=== PATIENT | male | born 1955 | race Caucasian/White ===

== ENCOUNTER 2018-05-04 19:44 | Emergency (ER) | payer MEDICAID, OTHER ==
[2018-05-04] MEDS ORDERED: Sodium Chloride 0.9% 500 ML IV STA (20:23)
[2018-05-04 20:54] LABS: BASO % 0.6 % (0.0-2.0); EOS # 0.1 K/uL (0.0-0.7); EOS % 1.6 % (0.0-4.0); HEMOGLOBIN 13.7 g/dL (12.0-18.0); LYMPH # 1.1 K/uL (1.0-4.3); LYMPH % 16.2 % (20.0-40.0); MEAN CELL VOLUME 91.8 fl (80.0-94.0); MEAN CORPUSCULAR HEMOGLOBIN 30.3 pg (27.0-31.0); MONO # 0.8 K/uL (0.0-0.8); MONO % 11.5 % (0.0-10.0); NEUT # 4.9 K/uL (1.8-7.0); NEUT % 70.1 % (50.0-75.0); NRBC % 0.1 % (0.0-0.0); RBC 4.52 Mil/uL (4.40-5.90); RED CELL DISTRIBUTION WIDTH 14.2 % (11.5-14.5)
[2018-05-04 21:02] LABS: ALB/GLOB RATIO 1.4 (1.0-2.1); ALBUMIN 4.2 g/dL (3.5-5.0); ALT/SGPT 62 U/L (21-72); AST/SGOT 121 U/L (17-59); BLOOD UREA NITROGEN 37 mg/dl (9-20); GFR NON-AFRICAN AMERICAN > 60
--- NOTE | 2018-05-04 21:44 | ED PDOC ---
HPI: Psych/Substance Abuse Time Seen by Provider: 05/04/18 20:05 Chief Complaint (Nursing): Substance Abuse Chief Complaint (Provider): Substance Abuse History Per: Patient, EMS History/Exam Limitations: no limitations Onset/Duration Of Symptoms: Hrs Current Symptoms Are (Timing): Still Present Suicide/Self Injury Attempted (Context): None Modifying Factor(s): Other (Heroin Abuse) Additional Complaint(s): 63 y/o male with a PMHx of HTN, two MIs and CAD brought to the ED after being found poorly responsive outdoors, onset prior to arrival. A dose of narcan was provided by the PD followed by an additional dose provided by EMS. After second dose of narcan, patient became more responsive, complaining of nausea and chest pain. Patient admits to heroin use. Of note, patient just got out of detention where his medical conditions were controlled. Patient states he has not taken any medication for conditions for the past three days. Denies EtOH use. PMD: no provider Past Medical History Reviewed: Historical Data, Nursing Documentation, Vital Signs Vital Signs: Last Vital Signs Temp 96.5 F L 05/04/18 19:46 Pulse 133 H 05/04/18 20:54 Resp 16 05/04/18 20:54 BP 129/71 05/04/18 20:54 Pulse Ox 95 05/04/18 20:54 - Medical History PMH: Atrial Fibrillation, CAD, HTN Other PMH: Two TN - Surgical History Surgical History: No Surg Hx - Family History Family History: States: No Known Family Hx - Social History Current smoker - smoking cessation education provided: Yes Alcohol: None Drugs: Other - Home Medications Home Medications: Ambulatory Orders Medication Instructions Recorded RX: Unobtainable 05/04/18 - Allergies Allergies/Adverse Reactions: Allergies Allergy/AdvReac Type Severity Reaction Status Date / Time No Known Allergies Allergy Verified 05/04/18 19:46 Review of Systems ROS Statement: Except As Marked, All Systems Reviewed And Found Negative Cardiovascular: Positive for: Chest Pain Gastrointestinal: Positive for: Nausea Psych: Positive for: Other (Substance Abuse) Physical Exam - Reviewed Nursing Documentation Reviewed: Yes Vital Signs Reviewed: Yes - Physical Exam Appears: Positive for: In Acute Distress (Unkempt and Disheveled as well as Mild GI Distress (retching)) Head Exam: Positive for: ATRAUMATIC, NORMOCEPHALIC Skin: Positive for: Warm, Dry Eye Exam: Positive for: EOMI, PERRL ENT: Positive for: Normal ENT Inspection Neck: Positive for: Painless ROM, Supple Cardiovascular/Chest: Positive for: Tachycardia. Negative for: Edema, Murmur Respiratory: Positive for: Normal Breath Sounds. Negative for: Respiratory Distress Gastrointestinal/Abdominal: Positive for: Soft. Negative for: Tenderness Back: Positive for: Normal Inspection. Negative for: Muscle Spasm Extremity: Positive for: Normal ROM. Negative for: Deformity Lymphatic: Negative for: Adenopathy Neurologic/Psych: Positive for: Alert. Negative for: Motor/Sensory Deficits - Laboratory Results Result Diagrams: 05/05/18 04:11 05/05/18 04:11 - ECG O2 Sat by Pulse Oximetry: 95 (RA) Pulse Ox Interpretation: Normal - Progress Re-evaluation Time: 23:00 Condition: Improving,but remains with symptoms - Critical Care Total Time (In Min): 30 Documented Critical Care: Time excludes all time spent performint seperately billable procedures Medical Decision Making Medical Decision Making: Time: 20:22 Impression: Opioid OD in setting of cardiac risk factors Plan: - EKG - Alcohol Serum - CMP - Urine Drug Screen - Troponin I - Urine dipstick - CBC - CXR (portable) - Cardizem 125 mg IV 5 mg/hr - Cardizem 10 mg IVP - Sodium Chloride 0.9% 500 ml IV 500 mls/hr - Zofran 4 mg IVP - 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 Cardizem load/drip ordered. EtOH is 15 mg/dl Pt to be admitted for serial enzymes to rule out ACS 22:00 labs are unremarkable discussed with Dr. Mckeon HR normalizing. Pt to be admitted under his service for rapid A Fib and chest pain. Scribe Attestation: Documented by Mimi Victor, acting as a scribe for Provider Scribe Attestation: All medical record entries made by the Scribe were at my direction and personally dictated by me. I have reviewed the chart and agree that the record accurately reflects my personal performance of the history, physical exam, medical decision making, and the department course for this patient. I have also personally directed, reviewed, and agree with the discharge instructions and disposition. Disposition - Clinical Impression Clinical Impression: Atrial fibrillation with RVR, Substance use disorder, CAD (coronary artery disease) - Patient ED Disposition Is Patient to be Admitted: Yes Discussed With DrHarmony: Clovis Treadwell Doctor Will See Patient In The: Hospital Counseled Patient/Family Regarding: Studies Performed, Diagnosis - Disposition Disposition Time: 22:00 Condition: FAIR - Pt Status Changed To: Hospital Disposition Of: Inpatient - Admit Certification Admit to Inpatient:: After my assessment, the patient will require hospitalization for at least two midnights. This is because of the severity of symptoms shown, intensity of services needed, and/or the medical risk in this patient being treated as an outpatient. - POA Present On Arrival: None
[2018-05-05 04:27] LABS: BASO # 0.1 K/uL (0.0-0.2); BASO % 0.6 % (0.0-2.0); EOS # 0.1 K/uL (0.0-0.7); EOS % 0.5 % (0.0-4.0); HEMOGLOBIN 13.3 g/dL (12.0-18.0); LYMPH # 1.4 K/uL (1.0-4.3); LYMPH % 12.5 % (20.0-40.0); MEAN CELL VOLUME 94.4 fl (80.0-94.0); MEAN CORPUSCULAR HEMOGLOBIN 30.6 pg (27.0-31.0); MEAN CORPUSCULAR HGB CONC 32.4 g/dL (33.0-37.0); MONO # 1.1 K/uL (0.0-0.8); NEUT # 8.4 K/uL (1.8-7.0); NEUT % 76.4 % (50.0-75.0); NRBC % 0.2 % (0.0-0.0); RBC 4.36 Mil/uL (4.40-5.90)
[2018-05-05 04:30] LABS: ALB/GLOB RATIO 1.3 (1.0-2.1); ALBUMIN 3.8 g/dL (3.5-5.0); ALT/SGPT 57 U/L (21-72); AST/SGOT 101 U/L (17-59); BLOOD UREA NITROGEN 34 mg/dl (9-20); CALCIUM 8.6 mg/dL (8.4-10.2); GFR NON-AFRICAN AMERICAN > 60
[2018-05-05 04:51] LABS: BARBITURATES, UR NEGATIVE (NEGATIVE); BENZODIAZEPINES, UR NEGATIVE (NEGATIVE); OPIATES, UR POSITIVE (NEGATIVE); PHENCYCLIDINE, UR NEGATIVE (NEGATIVE)
[2018-05-05 08:22] VITALS: RESP 19
[2018-05-05] MEDS ORDERED: Enoxaparin 60 mg Syringe SC SCH ×2 (09:00)
--- NOTE | 2018-05-05 09:16 | RAD ---
Date of service: 05/04/2018 HISTORY: chest pain COMPARISON: No prior. FINDINGS: LUNGS: The left infra hilar bronchovascular markings appear slightly increase here peribronchial thickening-inflammatory changes-chronicity unknown with possible concomitant bronchiectasis is a consideration. Some increased soft tissue density in the right infrahilar location also suggested extreme variant versus concomitant right infrahilar peribronchial thickening here as well a consideration. Study is rotated and or mild scoliosis also suggested. PLEURA: No significant pleural effusion identified, no pneumothorax apparent. CARDIOVASCULAR: There is presence of aortic atherosclerotic calcification on x-ray. Probable top-normal. No significant appearing pulmonary venous congestion. OSSEOUS STRUCTURES: The convexity thoracic spine. Right shoulder arthrosis. VISUALIZED UPPER ABDOMEN: Normal. OTHER FINDINGS: None IMPRESSION: Bibasilar infrahilar peribronchial thickening compatible with inflammation/bronchitis. Concomitant bronchiectasis here possible. Comparison with any outside studies recommended. Chronicity unknown Other findings as above.
--- NOTE | 2018-05-05 11:17 | CP.PCM.HP ---
History of Present Illness - History of Present Illness History of Present Illness: CC: Poorly Responsive HPI: Hsitory from the Medical record A63 y/o male with a PMHx of HTN, two MIs and CAD brought to the ED after being found poorly responsive outdoors, onset prior to arrival. A dose of narcan was provided by the PD followed by an additional dose provided by EMS. After second dose of narcan, patient became more responsive, complaining of nausea and chest pain. Patient admits to heroin use. Of note, patient just got out of custodial where his medical conditions were controlled. Patient states he has not taken any me dication for conditions for the past three days. Denies EtOH use. Patient was in A. FIB/A flutter with RVR Persistently >140 BMP. I have treated him overnight with Cardizem Infusion first 5mg/hr, and then 10 mg/hr. HR was brought to <100 BPM, and was switched to PO Cardizem. Present on Admission - Present on Admission Any Indicators Present on Admission: No Review of Systems - Review of Systems All systems: reviewed and no additional remarkable complaints except Past Patient History - Past Social History Alcohol: None Drugs: Opiates, Other - CARDIAC Hx Atrial Fibrillation: Yes Hx Hypertension: Yes - PSYCHIATRIC Hx Substance Use: Yes (heroin) - SURGICAL HISTORY Hx Surgeries: No Meds Allergies/Adverse Reactions: Allergies Allergy/AdvReac Type Severity Reaction Status Date / Time No Known Allergies Allergy Verified 05/04/18 19:46 Results - Vital Signs Recent Vital Signs: Last Vital Signs Temp 97.7 F 05/05/18 08:21 Pulse 78 05/05/18 09:59 Resp 19 05/05/18 09:59 BP 120/78 05/05/18 09:59 Pulse Ox 98 05/05/18 09:59 - Labs Result Diagrams: 05/05/18 04:11 05/05/18 04:11 Labs: Laboratory Results - last 24 hr 05/04/18 05/04/18 05/04/18 20:40 20:48 20:48 WBC 7.0 RBC 4.52 Hgb 13.7 Hct 41.5 MCV 91.8 MCH 30.3 MCHC 33.0 RDW 14.2 Plt Count 189 MPV 9.0 Neut % (Auto) 70.1 Lymph % (Auto) 16.2 L Adams % (Auto) 11.5 H Eos % (Auto) 1.6 Baso % (Auto) 0.6 Neut # (Auto) 4.9 Lymph # (Auto) 1.1 Adams # (Auto) 0.8 Eos # (Auto) 0.1 Baso # (Auto) 0.0 Sodium 140 Potassium 4.5 Chloride 100 Carbon Dioxide 27 Anion Gap 18 BUN 37 H Creatinine 1.1 Est GFR ( Amer) > 60 Est GFR (Non-Af Amer) > 60 Random Glucose 132 H Calcium 9.0 Total Bilirubin 0.8 AST 121 H ALT 62 Alkaline Phosphatase 85 Troponin I < 0.0120 Total Protein 7.2 Albumin 4.2 Globulin 3.0 Albumin/Globulin Ratio 1.4 TSH 3rd Generation 1.43 Urine Opiates Screen Urine Methadone Screen Ur Barbiturates Screen Ur Phencyclidine Scrn Ur Amphetamines Screen U Benzodiazepines Scrn U Oth Cocaine Metabols U Cannabinoids Screen Alcohol, Quantitative 15 H 05/05/18 05/05/18 05/05/18 04:11 04:11 04:24 WBC 11.0 H D RBC 4.36 L Hgb 13.3 Hct 41.1 MCV 94.4 H D MCH 30.6 MCHC 32.4 L RDW 14.0 Plt Count 213 MPV 9.0 Neut % (Auto) 76.4 H Lymph % (Auto) 12.5 L Adams % (Auto) 10.0 Eos % (Auto) 0.5 Baso % (Auto) 0.6 Neut # (Auto) 8.4 H Lymph # (Auto) 1.4 Adams # (Auto) 1.1 H Eos # (Auto) 0.1 Baso # (Auto) 0.1 Sodium 137 Potassium 5.3 H Chloride 100 Carbon Dioxide 28 Anion Gap 14 BUN 34 H Creatinine 1.0 Est GFR ( Amer) > 60 Est GFR (Non-Af Amer) > 60 Random Glucose 129 H Calcium 8.6 Total Bilirubin 0.8 AST 101 H ALT 57 Alkaline Phosphatase 76 Troponin I 0.0170 Total Protein 6.8 Albumin 3.8 Globulin 3.0 Albumin/Globulin Ratio 1.3 TSH 3rd Generation Urine Opiates Screen Positive H Urine Methadone Screen Negative Ur Barbiturates Screen Negative Ur Phencyclidine Scrn Negative Ur Amphetamines Screen Negative U Benzodiazepines Scrn Negative U Oth Cocaine Metabols Positive H U Cannabinoids Screen Positive H Alcohol, Quantitative - EKG Data EKG comments: A fib with RVR 130. Assessment & Plan (1) Atrial fibrillation with RVR Status: Acute Priority: High (2) CAD (coronary artery disease) Status: Acute Priority: High (3) Polysubstance (excluding opioids) dependence Assessment and Plan: Poor Responsiveness Narcan use in the field Status: Acute Priority: High - Assessment and Plan (Free Text) Plan: Cardizem Therapeutic anticoagulation
[2018-05-05 11:40] VITALS: BP 130/78; PULSE 89; TEMP 97.6
--- NOTE | 2018-05-06 00:06 | CARD ---
APPROVED REPORT Date of service: 05/04/2018 EKG Measurement Heart [id number] <Conclusion> Atrial fibrillation with rapid ventricular response Low voltage QRS Right bundle branch block Abnormal ECG
--- NOTE | 2018-05-06 00:44 | CARD ---
APPROVED REPORT Date of service: 05/05/2018 EXAM: Two-dimensional and M-mode echocardiogram with Doppler and color Doppler. Other Information Quality : GoodRhythm : NSR INDICATION Atrial Fibrillation 2D DIMENSIONS IVSd1.11 (0.7-1.1cm)LVDd4.31 (3.9-5.9cm) LVOT Diameter1.72 (1.8-2.4cm)PWd1.01 (0.7-1.1cm) IVSs1.40 (0.8-1.2cm)LVDs2.32 (2.5-4.0cm) FS (%) 46.2 %PWs1.57 (0.8-1.2cm) M-Mode DIMENSIONS Left Atrium (MM)4.14 (2.5-4.0cm)IVSd1.08 (0.7-1.1cm) Aortic Root2.65 (2.2-3.7cm)LVDd4.12 (4.0-5.6cm) Aortic Cusp Exc.1.70 (1.5-2.0cm)PWd1.03 (0.7-1.1cm) IVSs1.75 cmFS (%) 51 % LVDs2.01 (2.0-3.8cm)PWs1.88 cm Aortic Valve AoV Peak Nfizntow107.9cm/sAoV VTI26.6cmAO Peak GR.10mmHg LVOT Peak Yfxbykrx69.7cm/sLVOT VTI14.44cmAO Mean GR.6mmHg TAZ (VMAX)0.46rm2RTY (VTI)0.73cm2 Mitral Valve MV E Ynavtkka95.4cm/sMV DECEL AKUF145axXP A Eamabpag00.0cm/s MV USP45ndK/A ratio1.1MVA (PHT)5.09cm2 TDI Lateral E' Peak V12.22cm/sMedial E' Peak V9.13cm/sE/Lateral E'4.9 E/Medial E'6.5 Tricuspid Valve TR Peak Vtuauvbv094hq/sRAP XCKSCTTN68dzZoLW Peak Gr.26mmHg GRLR45pnPm LEFT VENTRICLE The left ventricle is normal size. There is normal left ventricular wall thickness. The left ventricular systolic function is normal. The estimated ejection fraction is 60-65% No regional wall motion abnormalities noted.. Transmitral Doppler flow pattern is Grade II-pseudonormal filling dynamics. No left ventricle thrombus noted on this study. There is no ventricular septal defect visualized. There is no left ventricular aneurysm. There is no mass noted in the left ventricle. RIGHT VENTRICLE The right ventricle is normal size. There is normal right ventricular wall thickness. The right ventricular systolic function is normal. ATRIA The left atrium is mildly dilated. The right atrium size is normal. The interatrial septum is intact with no evidence for an atrial septal defect. AORTIC VALVE The aortic valve is normal in structure. No aortic regurgitation is present. There is no aortic valvular stenosis. There is no aortic valvular vegetation. MITRAL VALVE The mitral valve is normal in structure. There is no evidence of mitral valve prolapse. There is no mitral valve stenosis. There is mild mitral valve regurgitation noted. TRICUSPID VALVE The tricuspid valve is normal in structure. There is mild tricuspid valve regurgitation noted. RVSP is calculated at 30 mm Hg. There is no tricuspid valve prolapse or vegetation. There is no tricuspid valve stenosis. PULMONIC VALVE The pulmonary valve is normal in structure. There is no pulmonic valvular regurgitation. There is no pulmonic valvular stenosis. GREAT VESSELS The aortic root is normal in size. The ascending aorta is normal in size. The pulmonary artery is normal. The IVC is normal in size and collapses >50% with inspiration. PERICARDIAL EFFUSION There is no pericardial effusion. There is no pleural effusion. <Conclusion> The estimated ejection fraction is 60-65% Transmitral Doppler flow pattern is Grade II-pseudonormal filling dynamics. The left atrium is mildly dilated. There is mild mitral valve regurgitation noted. There is mild tricuspid valve regurgitation noted. RVSP is calculated at 30 mm Hg.
--- NOTE | 2018-05-07 10:33 | CP.PCM.DIS ---
Provider - Provider Date of Admission: 05/04/18 22:16 Attending physician: Clovis Treadwell MD Time Spent in preparation of Discharge (in minutes): 10 Diagnosis - Discharge Diagnosis (1) Atrial fibrillation with RVR Status: Acute Priority: High (2) CAD (coronary artery disease) Status: Acute Priority: High (3) Polysubstance (excluding opioids) dependence Status: Acute Priority: High Hospital Course - Lab Results Lab Results: Most Recent Lab Values WBC 11.0 K/uL (4.8-10.8) H D 05/05/18 04:11 RBC 4.36 Mil/uL (4.40-5.90) L 05/05/18 04:11 Hgb 13.3 g/dL (12.0-18.0) 05/05/18 04:11 Hct 41.1 % (35.0-51.0) 05/05/18 04:11 MCV 94.4 fl (80.0-94.0) H D 05/05/18 04:11 MCH 30.6 pg (27.0-31.0) 05/05/18 04:11 MCHC 32.4 g/dL (33.0-37.0) L 05/05/18 04:11 RDW 14.0 % (11.5-14.5) 05/05/18 04:11 Plt Count 213 K/uL (130-400) 05/05/18 04:11 MPV 9.0 fl (7.2-11.7) 05/05/18 04:11 Neut % (Auto) 76.4 % (50.0-75.0) H 05/05/18 04:11 Lymph % (Auto) 12.5 % (20.0-40.0) L 05/05/18 04:11 [place] % (Auto) 10.0 % (0.0-10.0) 05/05/18 04:11 Eos % (Auto) 0.5 % (0.0-4.0) 05/05/18 04:11 Baso % (Auto) 0.6 % (0.0-2.0) 05/05/18 04:11 Neut # (Auto) 8.4 K/uL (1.8-7.0) H 05/05/18 04:11 Lymph # (Auto) 1.4 K/uL (1.0-4.3) 05/05/18 04:11 [place] # (Auto) 1.1 K/uL (0.0-0.8) H 05/05/18 04:11 Eos # (Auto) 0.1 K/uL (0.0-0.7) 05/05/18 04:11 Baso # (Auto) 0.1 K/uL (0.0-0.2) 05/05/18 04:11 Sodium 137 mmol/l (132-148) 05/05/18 04:11 Potassium 5.3 MMOL/L (3.6-5.0) H 05/05/18 04:11 Chloride 100 mmol/L (98-107) 05/05/18 04:11 Carbon Dioxide 28 mmol/L (22-30) 05/05/18 04:11 Anion Gap 14 (10-20) 05/05/18 04:11 BUN 34 mg/dl (9-20) H 05/05/18 04:11 Creatinine 1.0 mg/dl (0.8-1.5) 05/05/18 04:11 Est GFR ( Amer) > 60 05/05/18 04:11 Est GFR (Non-Af Amer) > 60 05/05/18 04:11 POC Glucose (mg/dL) 120 mg/dL (65-110) H 05/04/18 20:37 Random Glucose 129 mg/dL (75-110) H 05/05/18 04:11 Calcium 8.6 mg/dL (8.4-10.2) 05/05/18 04:11 Total Bilirubin 0.8 mg/dl (0.2-1.3) 05/05/18 04:11 AST 101 U/L (17-59) H 05/05/18 04:11 ALT 57 U/L (21-72) 05/05/18 04:11 Alkaline Phosphatase 76 U/L (38-126) 05/05/18 04:11 Troponin I 0.0170 ng/mL (0.00-0.120) 05/05/18 04:11 Total Protein 6.8 G/DL (6.3-8.2) 05/05/18 04:11 Albumin 3.8 g/dL (3.5-5.0) 05/05/18 04:11 Globulin 3.0 gm/dL (2.2-3.9) 05/05/18 04:11 Albumin/Globulin Ratio 1.3 (1.0-2.1) 05/05/18 04:11 TSH 3rd Generation 1.43 mIU/ML (0.46-4.68) 05/04/18 20:40 Urine Opiates Screen Positive (NEGATIVE) H 05/05/18 04:24 Urine Methadone Screen Negative (NEGATIVE) 05/05/18 04:24 Ur Barbiturates Screen Negative (NEGATIVE) 05/05/18 04:24 Ur Phencyclidine Scrn Negative (NEGATIVE) 05/05/18 04:24 Ur Amphetamines Screen Negative (NEGATIVE) 05/05/18 04:24 U Benzodiazepines Scrn Negative (NEGATIVE) 05/05/18 04:24 U Oth Cocaine Metabols Positive (NEGATIVE) H 05/05/18 04:24 U Cannabinoids Screen Positive (NEGATIVE) H 05/05/18 04:24 Alcohol, Quantitative 15 mg/dl (0-10) H 05/04/18 20:48 Discharge Plan - Follow Up Plan Condition: FAIR Disposition: AGAINST MEDICAL ADVICE
[2018-05-08 16:06] VITALS: O2SAT 95
== END 2018-05-05 11:40 | disposition left against medical advice (07) ==
LOC: H.ER 19:44 → H.ERHOLD 22:16 → UNDOADMIN 22:16 → UNDODISIN 05-05 11:40
DX: I48.91 Unspecified atrial fibrillation (principal); F11.10 Opioid abuse, uncomplicated; Q24.5 Malformation of coronary vessels
CPT/HCPCS: 71045; 80053; 80320; 80324; 80345; 80346; 80349; 80353; 80358; 80361; 82948; 83992; 84443; 84484; 85025; 93005; 93306; 96361; 96372; 96374; 96375; 99285; J1650; J2405; J7030

== ENCOUNTER 2018-05-26 11:33 | Emergency (ER) | payer OTHER ==
--- NOTE | 2018-05-26 12:35 | ED PDOC ---
HPI: General Adult Time Seen by Provider: 05/26/18 12:15 Chief Complaint (Nursing): Medical Clearance Chief Complaint (Provider): Medical Clearance History Per: Patient History/Exam Limitations: no limitations Onset/Duration Of Symptoms: Hrs Current Symptoms Are (Timing): Gone Now Additional Complaint(s): Bird Murray is a 63 year old male with a past medical history of CAD, hypertension, and atrial fibrillation who is presenting to the ED with police for medical and psychiatric clearance prior to incarceration. Patient states that he had a fever 2 days ago but is better now with no pain. He reports that he has had 2 heart attacks in the past with the most recent one 1 year ago. Patient offers no other medical complaints at this time and reports no pain. PMD: none provided Past Medical History Reviewed: Historical Data, Nursing Documentation, Vital Signs Vital Signs: Last Vital Signs Temp 98.1 F 05/26/18 11:42 Pulse 89 05/26/18 11:42 Resp 18 05/26/18 11:42 BP 124/81 05/26/18 11:42 Pulse Ox 99 05/26/18 11:42 - Medical History PMH: Atrial Fibrillation, CAD, HTN - Surgical History Surgical History: No Surg Hx - Family History Family History: States: Unknown Family Hx - Social History Current smoker - smoking cessation education provided: No Alcohol: None Drugs: Denies - Home Medications Home Medications: Ambulatory Orders Medication Instructions Recorded Unobtainable 05/04/18 - Allergies Allergies/Adverse Reactions: Allergies Allergy/AdvReac Type Severity Reaction Status Date / Time No Known Allergies Allergy Verified 05/26/18 11:43 Review of Systems ROS Statement: Except As Marked, All Systems Reviewed And Found Negative Constitutional: Positive for: Fever (gone now ) Cardiovascular: Negative for: Chest Pain Physical Exam - Reviewed Nursing Documentation Reviewed: Yes Vital Signs Reviewed: Yes - Physical Exam Appears: Positive for: Well, Non-toxic, No Acute Distress Head Exam: Positive for: ATRAUMATIC, NORMAL INSPECTION, NORMOCEPHALIC Skin: Positive for: Normal Color, Warm, DRY Eye Exam: Positive for: Normal appearance Cardiovascular/Chest: Positive for: Regular Rate, Rhythm Respiratory: Positive for: Normal Breath Sounds. Negative for: Respiratory Dist ress Extremity: Positive for: Normal ROM. Negative for: Deformity, Swelling Neurologic/Psych: Positive for: Alert, Oriented. Negative for: Motor/Sensory Deficits - ECG ECG Rhythm: Positive for: Normal QRS, Normal ST Segment, Sinus Rhythm Interpretation Of ECG: elevated V4 and V5, atrial enlargement Rate: 72 O2 Sat by Pulse Oximetry: 99 (RA) Pulse Ox Interpretation: Normal Medical Decision Making Medical Decision Making: Time: 12:17 Plan: --EKG (noted) --Crisis Evaluation (cleared) --Influenza A B (negative) --Urinalysis (negative) Scribe Attestation: Documented by, Karen Molina acting as a scribe for Trent Lopez PA-C. Provider Scribe Attestation: All medical record entries made by the Scribe were at my direction and personally dictated by me. I have reviewed the chart and agree that the record accurately reflects my personal performance of the history, physical exam, medical decision making, and the department course for this patient. I have also personally directed, reviewed, and agree with the discharge instructions and disposition. Disposition - Clinical Impression Clinical Impression: Medical clearance for incarceration - Disposition Disposition: Discharged/Transfer to Law Enforcement Disposition Time: 14:28 Condition: STABLE Additional Instructions: Pt is medically and psychologically cleared for incarceration Instructions: General (DC) Forms: [employer] (Telugu)
[2018-05-26 13:50] LABS: SQUAMOUS EPITHIAL < 1 /hpf (0-5); URINE BACTERIA RARE (<OCC); URINE BILIRUBIN NEGATIVE (NEGATIVE); URINE BLOOD NEGATIVE (NEGATIVE); URINE CLARITY SLIGHTY-CLOUDY (Clear); URINE COLOR YELLOW (YELLOW); URINE GLUCOSE (UA) NEG (NEGATIVE); URINE LEUKOCYTE ESTERASE NEG Leu/uL (Negative); URINE PROTEIN 30 mg/dL (NEGATIVE); URINE UROBILINOGEN 0.2-1.0 mg/dL (0.2-1.0)
[2018-05-26 14:42] VITALS: BP 134/70; RESP 16; TEMP 98
[2018-05-26 14:55] VITALS: PULSE 72; O2SAT 99
--- NOTE | 2018-05-27 00:14 | CARD ---
APPROVED REPORT Date of service: 05/26/2018 EKG Measurement Heart [id number] <Conclusion> Sinus rhythm with occasional premature supraventricular contractions Intraventricular conduction delay of a RBBB type Possible Left atrial enlargement Abnormal ECG CPT NSR has replaced AF and rate has decreased
== END 2018-05-26 14:40 ==
LOC: H.ER 11:33
DX: Z02.89 Encounter for other administrative examinations (principal); Z65.3 Problems related to other legal circumstances; I25.10 Atherosclerotic heart disease of native coronary artery without angina pectoris; I10 Essential (primary) hypertension; I48.91 Unspecified atrial fibrillation; F17.210 Nicotine dependence, cigarettes, uncomplicated